=== PATIENT | female | born 2000 | race Caucasian/White ===

== ENCOUNTER 2018-07-23 20:25 | Emergency (ER) | payer BC ==
[~2018-07-23] VITALS: Ht 154.9 cm; Wt 68.0 kg
[2018-07-23 20:32] VITALS: BP 122/82
--- NOTE | 2018-07-23 20:38 | NUR ---
TO BED # 7 AMBULATORY, REPORT GIVEN TO JHONY GOMEZ
--- NOTE | 2018-07-23 20:38 | NUR ---
17/F came in w c/o persistent vomiting ~10x/day x 1 week. Also c/o epigastric pain, BS active x 4. Denies hematemesis. Pt reports she is 4 weeks , LMP april 2018, . Denies vag bleeding. Denies PMH
--- NOTE | 2018-07-23 20:44 | NUR ---
PT TAKEN TO ULTRASOUND
[2018-07-23 21:10] LABS: APPEARANCE,URINE CLEAR (CLEAR); BILIRUBIN,URINE 1+ (NEGATIVE); BLOOD, URINE TRACE-L (NEGATIVE); COLOR,URINE YELLOW (YELLOW); LEUKOCYTE ESTERASE ,URINE NEGATIVE (NEGATIVE); NITRITE, URINE NEGATIVE (NEGATIVE); UGLUCOSE NEGATIVE (NEGATIVE)
[2018-07-23 21:14] LABS: RBC,URINE 3-10 (FEW) /HPF (0-5)
[2018-07-23 21:25] LABS: BASOPHILS % (AUTO) 0.2 % (0.0-2.0); HEMATOCRIT 50.3 % (36-48); LYMPHOCYTES % (AUTO) 8.4 % (20.5-51.1); MEAN CORPUSCULAR HEMOGLOBIN 28 pg (27-31); MEAN CORPUSCULAR HGB CONC 34 g/dL (33-37); MEAN CORPUSCULAR VOLUME 82.4 fL (80-94); MONOCYTES # (AUTO) 0.7 K/uL (0.8-1.0); MONOCYTES % (AUTO) 5.7 % (1.7-9.3); NEUTROPHILS % (AUTO) 85.7 % (42.2-75.2); PLATELET COUNT (AUTO) 313 K/uL (140-450); RED CELL DISTRIBUTION WIDTH 14.2 % (11.6-13.7); WHITE BLOOD COUNT (AUTO) 11.7 K/uL (4.5-11.0)
[2018-07-23] MEDS ORDERED: ONDANSETRON 4 MG/2 ML VIAL IVP ONE (21:25)
[2018-07-23] MEDS ORDERED: NACL 0.9% 1,000 ML IV ONE (21:25)
[2018-07-23 21:47] LABS: ANION GAP 27.5 (8-16); CARBON DIOXIDE 14.3 mmol/L (21-32); CREATININE 0.8 mg/dL (0.6-1.3); POTASSIUM 3.8 mmol/L (3.5-5.1)
[2018-07-23] MEDS ORDERED: FAMOTIDINE 20 MG TAB PO ONE (23:05)
[2018-07-23 23:20] VITALS: BP 117/77
--- NOTE | 2018-07-23 23:20 | NUR ---
Patient discharged with v/s stable. Written and verbal after care instructions given and explained. Patient alert, oriented and verbalized understanding of instructions. Ambulatory with steady gait. All questions addressed prior to discharge. ID band removed. Patient advised to follow up with PMD. Rx of PEPCID, ZOFRAN, VITAMIN B6 given. Patient educated on indication of medication including possible reaction and side effects. Opportunity to ask questions provided and answered. IV removed, catheter intact and site benign. Applied folded 4x4 gauze and tape to stop bleeding.
== END 2018-07-23 23:20 | disposition home or self-care (01) ==
LOC: MED 20:25
DX: O21.0 Mild hyperemesis gravidarum (principal); Z3A.01 Less than 8 weeks gestation of pregnancy; Z88.2 Allergy status to sulfonamides
CPT/HCPCS: 36415; 76801; 80048; 81001; 81025; 84702; 85025; 86900; 86901; 87086; 96361; 96374; 99285; J2405; J7030; Q0092

== ENCOUNTER 2018-07-27 16:22 | Emergency (ER) | payer BC ==
[~2018-07-27] VITALS: Ht 154.9 cm; Wt 68.0 kg
[2018-07-27 16:41] VITALS: BP 125/79
--- NOTE | 2018-07-27 16:49 | NUR ---
PT AMB TO BED4.
[2018-07-27] MEDS ORDERED: ONDANSETRON 4 MG/2 ML VIAL IVP ONE (16:50)
[2018-07-27] MEDS ORDERED: NACL 0.9% 1,000 ML IV ONE ×2 (16:50→17:55)
--- NOTE | 2018-07-27 16:51 | NUR ---
17/F BIB BOYFRIEND WITH C/O N/V x 15 today WITH 6 wks . Reports sob and CONSTANT MID chest pain X 3 DAYS. G-1,p-0. med hx: heart tumors. rx: none. SEEN HERE 2 DAYS AGO WITH SAME S/S. SKIN IS PINK/WARM/DRY; AAOX4 WITH EVEN AND STEADY GAIT; LUNGS CLEAR BL; HR TACHY 123/MINS. PT DENIES ANY FEVER OR COUGH AT THIS TIME; PATIENT STATES PAIN OF 7/10 AT THIS TIME. PATIENT POSITIONED FOR COMFORT; HOB ELEVATED; BEDRAILS UP X2; BED DOWN. ER MD MADE AWARE OF PT STATUS.
[2018-07-27] MEDS ORDERED: PROMETHAZINE 25 MG/ML VIAL IVP ONE (17:10)
[2018-07-27 17:57] LABS: ANION GAP 19.9 (8-16); CARBON DIOXIDE 18.2 mmol/L (21-32); CREATININE 0.6 mg/dL (0.6-1.3); POTASSIUM 3.1 mmol/L (3.5-5.1)
--- NOTE | 2018-07-27 18:28 | NUR ---
Patient being reevaluated by DR CARTER at bedside.
[2018-07-27] MEDS ORDERED: POTASSIUM CHLORIDE 10 MEQ TABER PO ONE (18:45)
[2018-07-27 19:17] VITALS: BP 109/65
--- NOTE | 2018-07-27 19:17 | NUR ---
Patient discharged with v/s stable. Written and verbal after care instructions given and explained. Patient alert, oriented and verbalized understanding of instructions. Ambulatory with steady gait. All questions addressed prior to discharge. ID band removed. Patient advised to follow up with PMD. Rx of PHENERGAN given. Patient educated on indication of medication including possible reaction and side effects. Opportunity to ask questions provided and answered.
== END 2018-07-27 19:17 | disposition home or self-care (01) ==
LOC: MED 16:22
DX: O21.8 Other vomiting complicating pregnancy (principal); Z3A.01 Less than 8 weeks gestation of pregnancy
CPT/HCPCS: 36415; 80048; 81002; 81025; 96361; 96374; 99284; J2550; J7030; J2405